=== PATIENT | male | born 1960 | race American Indian/Alaskan Native ===

== ENCOUNTER 2019-06-20 15:23 | Emergency (ER) | payer MEDICAID ==
[2019-06-20] MEDS ORDERED: ASPIRIN 325 MG TAB PO ONE (15:55)
[2019-06-20] MEDS ORDERED: SODIUM CHLORIDE 0.9% 1000 ML 2,000 ML IV ONE (16:20)
[2019-06-20] MEDS ORDERED: FAMOTIDINE 20 MG/2 ML INJ IV ONE (16:20)
--- NOTE | 2019-06-20 16:22 | Emergency Department Report ---
ED General Adult HPI - General Chief complaint: Chest Pain Stated complaint: EPIGASTRIC PAIN Time Seen by Provider: 06/20/19 16:12 Source: patient, EMS (EMS records not available at time of chart dictation.) Mode of arrival: Stretcher Limitations: No Limitations - History of Present Illness Initial comments: The patient is a 59-year-old gentleman. This patient is not known to this provider previously. He typically follows at [facility]. Reportedly has a history of HIV, we do not know what his CD4 count is or viral load. He is reportedly not on antiviral medicines at this time. The patient presents to the ER with a complaint of central and right-sided chest pressure, constant for the past couple hours, does not radiate anywhere, and associated dizziness and lightheadedness. He has no headache or neck pain. He has no abdominal pain. He has no urinary symptoms. He has no leg pain or leg swelling. The chest pain is described as aching and throbbing. He's not sure if he has taken aspirin recently, and he also denies vomiting and diaphoresis. He indicates that he typically has low blood pressure and occasionally low blood counts. He denies hematemesis and bright red blood per rectum. There is no tinnitus. There is no vertigo. There is no loss of consciousness. There is no focal extremity weakness and/or numbness. -: Gradual Location: chest Radiation: other Severity scale (0 -10): 0 Quality: other Consistency: other Improves with: other Worsens with: other Associated Symptoms: other - Related Data Allergies Allergy/AdvReac Type Severity Reaction Status Date / Time ibuprofen AdvReac Unknown Verified 06/20/19 16:14 ED Review of Systems ROS: Stated complaint: EPIGASTRIC PAIN Other details as noted in HPI Constitutional: denies: fever Eyes: denies: eye discharge ENT: denies: congestion Cardiovascular: chest pain, other Gastrointestinal: denies: abdominal pain, melena, hematochezia Genitourinary: denies: dysuria Musculoskeletal: denies: myalgia Skin: denies: lesions Neurological: weakness Hematological/Lymphatic: denies: easy bleeding ED Past Medical Hx - Past Medical History Previous Medical History?: Yes Hx HIV: Yes - Surgical History Past Surgical History?: Yes Additional Surgical History: Right knee, Left hand - Social History Smoking Status: Current Every Day Smoker Substance Use Type: Marijuana ED Physical Exam - General Limitations: No Limitations General appearance: alert, in no apparent distress - Head Head exam: Present: atraumatic, normocephalic - Eye Eye exam: Present: normal appearance, EOMI, other (visual acuity intact to finger counting and color perception at close distance). Absent: nystagmus - ENT ENT exam: Present: normal exam, normal orophraynx, mucous membranes moist, normal external ear exam - Neck Neck exam: Present: normal inspection, full ROM. Absent: tenderness, meningismus - Respiratory Respiratory exam: Present: normal lung sounds bilaterally. Absent: respiratory distress - Cardiovascular Cardiovascular Exam: Present: regular rate, normal rhythm, normal heart sounds. Absent: bradycardia, tachycardia, irregular rhythm, systolic murmur, diastolic murmur, rubs, gallop - GI/Abdominal GI/Abdominal exam: Present: soft. Absent: distended, tenderness, guarding, rebound, rigid, pulsatile mass - Rectal Rectal exam: Present: deferred - Extremities Exam Extremities exam: Present: normal inspection, full ROM, other (2+ pulses noted i n the bilateral upper and lower extremities. The pelvis is stable. There is no long bony tenderness. The muscular compartments are soft. There is no redness, pus, streaking or erythema.). Absent: pedal edema, calf tenderness - Back Exam Back exam: Present: normal inspection, full ROM. Absent: tenderness, CVA tenderness (R), CVA tenderness (L), paraspinal tenderness, vertebral tenderness - Neurological Exam Neurological exam: Present: alert (there is no past pointing. There is normal gjfs-do-gynr. There is no pronator drift.), oriented X3, other (there is no facial droop. The tongue is midline. Extraocular movements are intact bilaterally. Speaking in full sentences. Hearing is grossly intact. 5 out of 5 strength bilateral upper and lower extremities. Sensation is intact to light touch bilateral upper and lower extremities.). Absent: motor sensory deficit - Psychiatric Psychiatric exam: Present: normal affect, normal mood - Skin Skin exam: Present: warm, dry, intact, normal color. Absent: rash ED Course Vital Signs 06/20/19 06/20/19 06/20/19 15:50 16:00 16:15 Temperature Pulse Rate 71 72 76 Respiratory 12 12 Rate Blood Pressure 96/76 Blood Pressure [Left] O2 Sat by Pulse 93 Oximetry 06/20/19 06/20/19 06/20/19 16:19 16:45 17:00 Temperature 98.5 F Pulse Rate 74 85 80 Respiratory 14 28 H 12 Rate Blood Pressure 115/76 105/78 Blood Pressure 115/77 [Left] O2 Sat by Pulse 95 93 Oximetry 06/20/19 06/20/19 06/20/19 17:15 17:45 17:54 Temperature Pulse Rate 78 87 Respiratory 13 13 Rate Blood Pressure 114/80 95/75 Blood Pressure 107/77 [Left] O2 Sat by Pulse 96 Oximetry - Reevaluation(s) Reevaluation #1: 06/20/19 17:42 Differential diagnosis, including but not limited to: GERD, gastritis, hiatal hernia, pneumonia, acute coronary syndrome, pulmonary embolus and, orthostasis, vagal event, structural cardiac disease Assessment and plan: 59-year-old gentleman with right-sided chest pressure, found to be mildly hypoxic, saturating at 94% on room air, with nonspecific chest pain, and lightheadedness. Screening laboratory studies reviewed and appreciated. Neurologic examination is nonfocal. Clinically sober at this time with a GCS of 15. Blood pressure improved, patient resting comfortably in stretcher and in no acute distress, with no discrete or observed episodes of loss of consciousness. Troponin negative 1, EKG fairly unremarkable. CT scan of the brain, chest pending, given elevated d-dimer. The patient is not tachycardic, or tachypnea, and his hypoxia seems to have improved. X-ray of the chest is reviewed and appreciated, patient's exam is not consistent with fluid overload. He may have chronic interstitial lung disease, CT scan of the chest will further delineate that. Reevaluation #2: 06/20/19 20:41 EKG #2 was unchanged from prior. Troponin negative 3. Vital signs unremarkable at this time. No hypoxia noted. CT scan of the brain is negative for acute disease. CT scan of the chest is negative for acute disease. Patient sitting down comfortably, and in no acute distress. He's not had any episodes of loss of consciousness while here in the department. The patient is suitable to follow-up with her outpatient primary care doctor or environmental health manager for further evaluation and management. ED Medical Decision Making - Lab Data Result diagrams: 06/20/19 16:12 06/20/19 16:12 Vital Signs 06/20/19 16:19 Temperature 98.5 F Pulse Rate 74 Respiratory 14 Rate Blood Pressure 115/77 [Left] O2 Sat by Pulse 95 Oximetry Lab Results 06/20/19 06/20/19 06/20/19 Range/Units 16:12 16:12 16:30 WBC 4.1 L (4.5-11.0) K/mm3 RBC 4.40 (3.65-5.03) M/mm3 Hgb 13.9 (11.8-15.2) gm/dl Hct 41.0 (35.5-45.6) % MCV 93 (84-94) fl MCH 32 (28-32) pg MCHC 34 (32-34) % RDW 13.3 (13.2-15.2) % Plt Count 149 (140-440) K/mm3 PT 13.5 (12.2-14.9) Sec. INR 1.02 (0.87-1.13) APTT 26.5 (24.2-36.6) Sec. D-Dimer 287.38 H (0-234) ng/mlDDU Sodium 139 (137-145) mmol/L Potassium 4.6 (3.6-5.0) mmol/L Chloride 106.1 (98-107) mmol/L Carbon Dioxide 20 L (22-30) mmol/L Anion Gap 18 mmol/L BUN 20 (9-20) mg/dL Creatinine 1.3 (0.8-1.5) mg/dL Estimated GFR 57 ml/min BUN/Creatinine Ratio 15 % Glucose 101 H (75-100) mg/dL Calcium 8.9 (8.4-10.2) mg/dL Magnesium (1.7-2.3) mg/dL Total Bilirubin (0.1-1.2) mg/dL Direct Bilirubin (0-0.2) mg/dL Indirect Bilirubin mg/dL AST (5-40) units/L ALT (7-56) units/L Alkaline Phosphatase (35-129) units/L Troponin T < 0.010 (0.00-0.029) ng/mL Total Protein (6.3-8.2) g/dL Albumin (3.9-5) g/dL Albumin/Globulin Ratio % TSH (0.270-4.200) mlU/mL Salicylates (2.8-20.0) mg/dL Acetaminophen (10.0-30.0) ug/mL Plasma/Serum Alcohol (0-0.07) % 06/20/19 06/20/19 06/20/19 Range/Units 16:30 16:30 16:30 WBC (4.5-11.0) K/mm3 RBC (3.65-5.03) M/mm3 Hgb (11.8-15.2) gm/dl Hct (35.5-45.6) % MCV (84-94) fl MCH (28-32) pg MCHC (32-34) % RDW (13.2-15.2) % Plt Count (140-440) K/mm3 PT (12.2-14.9) Sec. INR (0.87-1.13) APTT (24.2-36.6) Sec. D-Dimer (0-234) ng/mlDDU Sodium (137-145) mmol/L Potassium (3.6-5.0) mmol/L Chloride (98-107) mmol/L Carbon Dioxide (22-30) mmol/L Anion Gap mmol/L BUN (9-20) mg/dL Creatinine (0.8-1.5) mg/dL Estimated GFR ml/min BUN/Creatinine Ratio % Glucose (75-100) mg/dL Calcium (8.4-10.2) mg/dL Magnesium 2.20 (1.7-2.3) mg/dL Total Bilirubin 0.40 (0.1-1.2) mg/dL Direct Bilirubin < 0.2 (0-0.2) mg/dL Indirect Bilirubin 0.2 mg/dL AST 25 (5-40) units/L ALT 11 (7-56) units/L Alkaline Phosphatase 79 (35-129) units/L Troponin T (0.00-0.029) ng/mL Total Protein 8.7 H (6.3-8.2) g/dL Albumin 3.8 L (3.9-5) g/dL Albumin/Globulin Ratio 0.8 % TSH (0.270-4.200) mlU/mL Salicylates < 0.3 L (2.8-20.0) mg/dL Acetaminophen < 5.0 L (10.0-30.0) ug/mL Plasma/Serum Alcohol (0-0.07) % 06/20/19 06/20/19 Range/Units 16:30 16:30 WBC (4.5-11.0) K/mm3 RBC (3.65-5.03) M/mm3 Hgb (11.8-15.2) gm/dl Hct (35.5-45.6) % MCV (84-94) fl MCH (28-32) pg MCHC (32-34) % RDW (13.2-15.2) % Plt Count (140-440) K/mm3 PT (12.2-14.9) Sec. INR (0.87-1.13) APTT (24.2-36.6) Sec. D-Dimer (0-234) ng/mlDDU Sodium (137-145) mmol/L Potassium (3.6-5.0) mmol/L Chloride (98-107) mmol/L Carbon Dioxide (22-30) mmol/L Anion Gap mmol/L BUN (9-20) mg/dL Creatinine (0.8-1.5) mg/dL Estimated GFR ml/min BUN/Creatinine Ratio % Glucose (75-100) mg/dL Calcium (8.4-10.2) mg/dL Magnesium (1.7-2.3) mg/dL Total Bilirubin (0.1-1.2) mg/dL Direct Bilirubin (0-0.2) mg/dL Indirect Bilirubin mg/dL AST (5-40) units/L ALT (7-56) units/L Alkaline Phosphatase (35-129) units/L Troponin T (0.00-0.029) ng/mL Total Protein (6.3-8.2) g/dL Albumin (3.9-5) g/dL Albumin/Globulin Ratio % TSH 1.310 (0.270-4.200) mlU/mL Salicylates (2.8-20.0) mg/dL Acetaminophen (10.0-30.0) ug/mL Plasma/Serum Alcohol < 0.01 (0-0.07) % - EKG Data -: EKG Interpreted by [place] EKG shows normal: sinus rhythm - EKG Data 06/20/19 17:44 There is no prior EKG available for comparison. The EKG shows a sinus rhythm, with a rate of 76 bpm, there is a normal axis, QTC is 448 ms, there is left ventricular hypertrophy, PVCs noted. Not a STEMI. - Radiology Data Radiology results: report reviewed, image reviewed Print Report Referring Physician: BEN BOWMAN Patient Name: KAVITA NEVILLE Date of : 1960 Sex: Male Report Date: 2019-06-20 Report Status: Finalized Findings [facility] [address] [place] [address] XRay Report Signed Patient: KAVITA NEVILLE MR#: [id number] : 1960 Acct:[id number] Age/Sex: 59 / M ADM Date: 06/20/19 Loc: ED Attending Dr: Ordering Physician: BEN BOWMAN MD Date of Service: 06/20/19 Procedure(s): XR chest 1V ap Accession Number(s): [id number] cc: BEN BOWMAN MD Fluoro Time In Minutes: CHEST 1 VIEW INDICATION: Chest Pain. COMPARISON: None. FINDINGS: Support devices: None. Heart: Within normal limits. Lungs/Pleura: Mild interstitial thickening. No localized infiltrate. Additional findings: None. IMPRESSION: Suspect mild vascular congestion. Signer Name: Alec Ludwig MD Signed: 06/20/2019 4:51 PM Workstation Name: [id number] Transcribed By: ES Dictated By: Alec Ludwig MD Electronically Authenticated By: Alec Ludwig MD Signed Date/Time: 06/20/19 1857 Critical care attestation.: If time is entered above; I have spent that time in minutes in the direct care of this critically ill patient, excluding procedure time. ED Disposition Clinical Impression: Near syncope, History of chest pain Disposition: DC-01 TO HOME OR SELFCARE Is pt being admited?: No Does the pt Need Aspirin: No Condition: Stable Additional Instructions: Drink 4-6 cups of water per day, for the next 4-6 days. Do not take metformin medication for the next 2 days, if patient takes this medication. Patient may take [id number] Tylenol, as needed for pain, alternating with over-the- counter Pepcid, as needed for pain. Recommend follow-up with outpatient primary care doctor or environmental health manager/heart doctor within the next 5-[address] or operate motor vehicles until cleared to do so by a primary care doctor or environmental health manager. Return to the emergency room right away with projectile vomiting, change in mental status, confusion, inability to tolerate liquid feeds, new, worsened or different symptoms not present on the initial emergency room evaluation. Recommend follow-up with her outpatient primary care doctor or infectious disease specialist as well to reinitiate outpatient maintenance medications for chronic medical conditions/HIV. Referrals: [facility] [Provider Group] - 3-5 Days [facility] [Provider Group] - 3-5 Days [facility] [Provider Group] - 3-5 Days [facility] [Provider Group] - 3-5 Days
[2019-06-20 16:38] LABS: Hemoglobin 13.9 gm/dl (11.8-15.2); Mean Corpuscular HGB Conc 34 % (32-34); Mean Corpuscular Volume 93 fl (84-94); Platelet Count 149 K/mm3 (140-440); Red Cell Distribution Width 13.3 % (13.2-15.2)
[2019-06-20 16:50] LABS: BUN/Creatinine Ratio 15; Blood Urea Nitrogen 20 mg/dL (9-20); Calcium 8.9 mg/dL (8.4-10.2); Hemolysis Index 26
--- NOTE | 2019-06-20 16:55 | XRay Report ---
CHEST 1 VIEW INDICATION: Chest Pain. COMPARISON: None. FINDINGS: Support devices: None. Heart: Within normal limits. Lungs/Pleura: Mild interstitial thickening. No localized infiltrate. Additional findings: None. IMPRESSION: Suspect mild vascular congestion. Signer Name: Alec Ludwig MD Signed: 06/20/2019 4:51 PM Workstation Name: [id number]
[2019-06-20 16:57] LABS: INR 1.02 (0.87-1.13)
[2019-06-20 16:58] LABS: Partial Thromboplastin Time 26.5 Sec. (24.2-36.6)
[2019-06-20 17:03] LABS: Alanine Aminotransferase 11 units/L (7-56); Albumin 3.8 g/dL (3.9-5)
[2019-06-20 17:12] LABS: Bilirubin,Direct < 0.2 mg/dL (0-0.2)
[2019-06-20 17:40] LABS: RBC Morphology Normal; Total Cells Counted 100
[2019-06-20 17:55] VITALS: BP 107/77
--- NOTE | 2019-06-20 20:01 | Cat Scan Report ---
CT angio chest INDICATION / CLINICAL INFORMATION: cp dozzy sob hypoxia. TECHNIQUE: Precontrast bolus timing images were obtained followed by postcontrast axial and reformatted images. 3-plane MIP reconstructions were performed at an independent workstation by the technologist. All CT scans at this location are performed using CT dose reduction for ALARA by means of automated exposure control. COMPARISON: None available. FINDINGS: Pulmonary arterial enhancement is normal. No evidence of pulmonary embolus. No enlarged mediastinal or hilar lymph nodes. There are prominent axillary lymph nodes bilaterally. These range in size up to 1.5 cm in short axis dimension. No acute lung disease. Limited upper abdominal images show focal hypodensities within the gallbladder lumen. No hepatospleno megaly or visible adenopathy. No skeletal abnormality. IMPRESSION: 1. No evidence of pulmonary embolus or acute lung disease. 2. Bilateral axillary lymph node enlargement. 3. Suspected cholelithiasis. Signer Name: Octaviano Arceo MD Signed: 06/20/2019 7:57 PM Workstation Name: [id number]
--- NOTE | 2019-06-20 20:02 | Cat Scan Report ---
CT head/brain wo con INDICATION / CLINICAL INFORMATION: dizzy lightheaded. TECHNIQUE: All CT scans at this location are performed using CT dose reduction for ALARA by means of automated e xposure control. COMPARISON: None available. FINDINGS: No intracranial hemorrhage or abnormal extra-axial fluid collection. The ventricular system and basilar cisterns are normal. No evidence of mass effect or territorial infarction. The visualized paranasal sinuses are clear. No osseous abnormality. IMPRESSION: 1. No acute intracranial abnormality. Signer Name: Octaviano Arceo MD Signed: 06/20/2019 7:58 PM Workstation Name: [id number]
== END 2019-06-20 21:00 | disposition home or self-care (01) ==
LOC: ED 15:23
DX: R55 Syncope and collapse (principal); R07.89 Other chest pain; R42 Dizziness and giddiness; F17.200 Nicotine dependence, unspecified, uncomplicated; F12.10 Cannabis abuse, uncomplicated; Z21 Asymptomatic human immunodeficiency virus [HIV] infection status; Z98.890 Other specified postprocedural states; Z88.8 Allergy status to other drugs, medicaments and biological substances
CPT/HCPCS: 36415; 70450; 71045; 71275; 80048; 80076; 82550; 83615; 83735; 84443; 84484; 85007; 85025; 85379; 85610; 85730; 93005; 93010; 96361; 96374; 99285; J7030; Q9967; 80320; G0480